=== PATIENT | male | born 1995 | race Caucasian/White ===

== ENCOUNTER 2022-12-16 16:59 | Emergency (ER) | payer OTHER, SELFPAY ==
[2022-12-16 17:04] VITALS: BP 130/70; BP 151/95; PULSE 103; PULSE 106; RESP 16; TEMP 37.6; O2SAT 100; O2SAT 99; BMI 26.5
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
== END 2022-12-16 17:50 | disposition home or self-care (01) ==
PROVIDERS: Emergency Provider Emergency Medicine
DX: Z04.2 Encounter for examination and observation following work accident (principal); T65.893A Toxic effect of other specified substances, assault, initial encounter; H57.11 Ocular pain, right eye; R21 Rash and other nonspecific skin eruption; Y92.414 Local residential or business street as the place of occurrence of the external cause
CPT/HCPCS: 99283

== ENCOUNTER 2024-06-26 22:19 | Emergency (ER) | payer OTHER, SELFPAY ==
[2024-06-26 22:28] VITALS: BP 149/85; PULSE 92; RESP 18; TEMP 36.7; O2SAT 98; BMI 25.8
[2024-06-26 22:50] LABS: MANUAL DIFF FLAG NO
[2024-06-26 22:51] LABS: Basophils Absolute Auto 0.1 X10*3/uL (0.0-0.2); Basophils Percent Auto 0.7 % (0-2); Eosinophils Percent Auto 0.4 % (0-4); Hematocrit 46.1 % (42.0-52.0); Hemoglobin 16.1 g/dl (14.0-18.0); Imm Gran Abs Auto 0.01 X10*3/uL (0.00-0.03); Imm Gran Pct Auto 0.1 % (0.0-0.4); Lymphocytes Absolute Auto 1.8 X10*3/uL (1.2-4.9); Lymphocytes Percent Auto 26.4 % (20-40); Mean Corpuscular HGB Conc 34.9 g/dl (31.0-36.0); Mean Corpuscular Hemoglobin 29.2 pg (27.0-33.0); Mean Corpuscular Volume 83.5 fL (80.0-98.0); Mean Platelet Volume 10.1 fL (9.4-12.4); Monocytes Absolute Auto 0.4 X10*3/uL (0.1-1.2); Monocytes Percent Auto 5.9 % (2-11); Neutrophils Absolute Auto 4.5 x10*3/uL (2.0-8.3); Neutrophils Percent Auto 66.5 % (45-73); Platelet Count 180 X10*3/uL (160-400); Red Blood Count 5.52 X10*6/uL (4.60-5.80); Red Cell Distribution Width 12.3 % (11.0-16.0); White Blood Count 6.8 X10*3/uL (4.8-10.8)
[2024-06-26 23:12] LABS: Alanine Aminotransferase 24 U/L (0-40); Albumin Level 4.5 g/dL (3.5-5.0); Alkaline Phosphatase 74 U/L (39-117); Aspartate Amino Transferase 23 U/L (5-37); Bilirubin Total 0.5 mg/dL (0.0-1.0); Blood Urea Nitrogen 15 mg/dL (9-16); Calcium 9.7 mg/dL (8.4-10.2); Creatinine Clr Calc Pharmacy 134.7; Estimated Glomerular Filt Rate > 60; Glucose Random 97 mg/dL (60-115); Total Protein 7.3 g/dL (6.5-8.0)
[2024-06-26 23:29] LABS: Influenza A PCR NEGATIVE (Negative); Influenza B PCR NEGATIVE (Negative); Resp Syncy Virus RNA Qual PCR NEGATIVE (Negative); SARS COV2 PCR INHOUSE NEGATIVE (Negative)
[2024-06-26 23:39] LABS: Anion Gap 14 (12-20); Carbon Dioxide 23 mmol/L (22-29); Chloride 107 mmol/L (96-108); Potassium 3.8 mmol/L (3.3-5.1); Sodium 140 mmol/L (135-145)
[2024-06-27] MEDS: Dicyclomine HCl 10 MG CAPSULE 20 MG PO (01:06)
[2024-06-27] MEDS: Ondansetron ODT 4 MG TAB.RAPDIS TRANSLINGU (01:06)
--- NOTE | 2024-06-27 01:09 | PC.NURSE ---
provider into assess pt, medicated per mar, reviewed discharge instructions with pt, pt verbalized understanding, no sign of distress upon discharge.
[2024-06-27 01:13] VITALS: BP 123/81; PULSE 67; RESP 16; TEMP 37.1; O2SAT 97
--- NOTE | 2024-06-30 03:08 | ED_ITS ---
HPI - General Adult General Chief complaint: General Medical Stated complaint: dizziness, abd pain Time Seen by Provider: 06/27/24 00:33 Source: patient Mode of arrival: ambulatory Limitations: no limitations History of Present Illness ED Provider: HPI narrative: Patient complaining of diffuse abdominal pain cramping dizziness and headache for last 3 hours no nausea no vomiting no diarrhea does feels some bloating no other family member sick Related Data Previous Rx's ?Medication ?Instructions ?Recorded dicyclomine 20 mg tablet 20 mg PO TID #7 tabs 06/27/24 ondansetron 4 mg disintegrating 4 mg PO Q6-8H PRN nausea and 06/27/24 tablet vomiting #7 tabs Allergies Allergy/AdvReac Type Severity Reaction Status Date / Time No Known Allergies Allergy Verified 06/26/24 22:29 [No Known Allergies*] Review of Systems 2 Review of Systems: Yes all other systems are reviewed and are negative PMFSH Social History Social History Smoked in Last 30 Days: No Use of substances other than those prescribed or required for medical reasons: No Advance Directives: No Do you have a plan to hurt others: No Plan Physical Exam ED Vital Signs: BMI result Body Mass Index 25.8 Appearance: Alert. Oriented X3. No acute distress. Eyes: PERRLA, No Nystagmus ENT: Pharynx normal. Oral Mucosa moist Neck: Normal inspection. Neck supple. CVS: Normal heart rate and rhythm. Pulses normal. Respiratory: No respiratory distress. Equal air entry bilateral, no wheezing/rales/rhonchi Abdomen: Soft and nontender. Bowel sounds are present, no mass palpable, no CVA tenderness Skin: Skin warm and dry. Normal skin color. Normal skin turgor. Extremities: No lower extremity edema. No calf tenderness Neuro: Oriented X 3. No motor deficit. No sensory deficit.No cerebellar signs , cranial nerves II-XII intact Medications Administered Discontinued Medications Generic Name Dose Route Start Last Admin Trade Name Freq PRN Reason Stop Dose Admin Dicyclomine HCl 20 mg 06/27/24 00:58 06/27/24 01:06 Dicyclomine Hcl 10 Mg Capsule PO 06/27/24 00:59 20 mg ONCE ONE Administration Ondansetron HCl 4 mg 06/27/24 00:58 06/27/24 01:06 Ondansetron Odt 4 Mg Tab.Simondis TRANSLINGU 06/27/24 00:59 4 mg ONCE ONE Administration Medical Decision Making Medical Decision Making MDM Narrative: Patient likely with viral etiology for abdominal pain labs are stable nonfocal exam discharge patient home Lab Data [facility] Lab Attestation statement: I reviewed the patient's lab results. 06/26/24 22:45 06/26/24 22:45 Labs: Lab Results 06/26/24 Range/Units 22:45 WBC 6.8 (4.8-10.8) X10*3/uL RBC 5.52 (4.60-5.80) X10*6/uL Hgb 16.1 (14.0-18.0) g/dl Hct 46.1 (42.0-52.0) % MCV 83.5 (80.0-98.0) fL MCH 29.2 (27.0-33.0) pg MCHC 34.9 (31.0-36.0) g/dl RDW 12.3 (11.0-16.0) % Plt Count 180 (160-400) X10*3/uL MPV 10.1 (9.4-12.4) fL Immature Gran % (Auto) 0.1 (0.0-0.4) % Neut % (Auto) 66.5 (45-73) % Lymph % (Auto) 26.4 (20-40) % Clarke % (Auto) 5.9 (2-11) % Eos % (Auto) 0.4 (0-4) % Baso % (Auto) 0.7 (0-2) % Lymph # (Auto) 1.8 (1.2-4.9) X10*3/uL Clarke # (Auto) 0.4 (0.1-1.2) X10*3/uL Eos # (Auto) 0.0 (0.0-0.4) X10*3/uL Baso # (Auto) 0.1 (0.0-0.2) X10*3/uL Abs Immat Gran (auto) 0.01 (0.00-0.03) X10*3/uL Absolute Neuts (auto) 4.5 (2.0-8.3) x10*3/uL Absolute Nucleated RBC 0.000 (0.0-0.012) X10*3/uL Nucleated RBC % (auto) 0.0 (0.0-0.2) /100WBC Sodium 140 (135-145) mmol/L Potassium 3.8 (3.3-5.1) mmol/L Chloride 107 (96-108) mmol/L Carbon Dioxide 23 (22-29) mmol/L Anion Gap 14 (12-20) BUN 15 (9-16) mg/dL Creatinine 0.85 (0.5-1.4) mg/dL Estim Creat Clear Calc 134.7 Estimated GFR > 60 Random Glucose 97 (60-115) mg/dL Calcium 9.7 (8.4-10.2) mg/dL Total Bilirubin 0.5 (0.0-1.0) mg/dL AST 23 (5-37) U/L ALT 24 (0-40) U/L Alkaline Phosphatase 74 (39-117) U/L Total Protein 7.3 (6.5-8.0) g/dL Albumin 4.5 (3.5-5.0) g/dL Influenza Type A (PCR) NEGATIVE (Negative) Influenza Type B (PCR) NEGATIVE (Negative) RSV RNA Qual (PCR) NEGATIVE (Negative) SARS-CoV-2 RNA (RT-PCR) NEGATIVE (Negative) Discharge Plan Discharge Clinical Impression: Abdominal pain Patient Disposition: Home, Self-Care Instructions: Abdominal Pain (ED) Additional Instructions: Your abdominal pain is likely from viral etiology Take medication for nausea and abdominal cramps Report to the ER if gets worse or follow up with PCP Drink plenty of fluids Prescriptions: New ondansetron 4 mg tablet,disintegrating 4 mg PO Q6-8H PRN (Reason: nausea and vomiting) Qty: 7 0RF dicyclomine 20 mg tablet 20 mg PO TID Qty: 7 0RF Interventions: ED Discharge Assessment Last Done: 06/27/24 01:13 Discharge Date/Time: 06/27/24 01:14 Print Language: Vietnamese
== END 2024-06-27 01:14 | disposition home or self-care (01) ==
PROVIDERS: Emergency Provider Internal Medicine
DX: R10.2 Pelvic and perineal pain (principal); R42 Dizziness and giddiness; R51.9 Headache, unspecified; Z03.818 Encounter for observation for suspected exposure to other biological agents ruled out
CPT/HCPCS: 0241U; 80053; 85025; 99283; 99284